=== PATIENT | female | born 1995 | race Caucasian/White ===

== ENCOUNTER 2020-01-06 10:01 | Emergency (ER) | payer BC, OTHER ==
[2020-01-06 10:34] VITALS: BP 138/74; PULSE 99; TEMP 98.8; BMI 31.7
--- NOTE | 2020-01-06 11:19 | PDOC ---
History of Present Illness - General Chief Complaint: Ear Problem Stated Complaint: LFT EAR PAIN Time Seen by Provider: 01/06/20 10:36 History Source: Patient Exam Limitations: No Limitations Past History - Travel Traveled outside of the country in the last 30 days: No Close contact w/someone who was outside of country & ill: No - Past Medical History Allergies/Adverse Reactions: Allergies Allergy/AdvReac Type Severity Reaction Status Date / Time No Known Allergies Allergy Verified 01/06/20 10:34 Home Medications: Ambulatory Orders Amox-Tr/K Cl [Augmentin - 875Mg Tablet] 1 tab PO BID #14 tablet 01/06/20 Fluticasone Prop 0.05% Nasal [Flonase -] 1 - 2 spray NS DAILY #1 spray.pump 01/22 Meclizine HCl [Antivert -] 25 mg PO TID #21 tablet 01/06/20 Asthma: Yes COPD: No - Immunization History Immunization Up to Date: Yes - Psycho Social/Smoking Cessation Hx Smoking History: Never smoked Have you smoked in the past 12 months: No Hx Alcohol Use: No Drug/Substance Use Hx: No Review of Systems - Review of Systems Able to Perform ROS?: Yes Comments:: 01/06/20 19:17 CONSTITUTIONAL: Absent: fever, chills, diaphoresis, generalized weakness, malaise, loss of appetite HEENT: Present: L ear pain Absent: rhinorrhea, nasal congestion, throat pain, throat swelling, difficulty swallowing, mouth swelling, ear pain, visual Changes RESPIRATORY: Absent: cough, shortness of breath, dyspnea with exertion, orthopnea, wheezing, stridor, hemoptysis MUSCULOSKELETAL: Absent: myalgia, arthralgia, joint swelling SKIN: Absent: rash, itching, pallor NEUROLOGIC: Absent: headache, focal weakness or paresthesias, dizziness, unsteady gait, seizure, mental status changes, bladder or bowel incontinence PSYCHIATRIC: Absent: anxiety, depression, suicidal or homicidal ideation, hallucinations. Is the patient limited Lao proficient: No *Physical Exam - Vital Signs Last Vital Signs Temp Pulse Resp BP Pulse Ox 98.8 F 99 H 16 138/74 98 01/06/20 10:32 01/06/20 10:32 01/06/20 10:32 01/06/20 10:32 01/06/20 10:32 - Physical Exam 01/06/20 19:18 GENERAL: The patient is awake, alert, and fully oriented, in no acute distress. HEAD: Normal with no signs of trauma. EYES: Pupils equal, round and reactive to light, extraocular movements intact, sclera anicteric, conjunctiva clear. HEENT: No nasal congestion or rhinorrhea. No sinus Tenderness. Mucous membranes are moist. No tonsillar erythema, exudate or edema. Uvula is midline. No R TM bulging, dullness or erythema. Left TM is retracted with a fluid level noted. Ear canals are without edema bilaterally. EXTREMITIES: Normal range of motion, no edema. NEUROLOGICAL: Normal speech, normal gait. PSYCH: Normal mood, normal affect. SKIN: Warm, Dry, normal turgor, no rashes or lesions noted. Medical Decision Making - Medical Decision Making 01/06/20 19:30 The patient is a 24-year-old female no past medical history presents the ER with 2 weeks of left ear pain. She states that she went to an urgent care last week and was told Motrin. She states that her pain is gotten worse and the pain is sharp. She admits to some dizziness. Denies lightheadedness, nausea and vomiting. A/P: Otitis media On exam the left TM is retracted with air-fluid level behind the TM. Likely an acute otitis media symptoms have progressed over the last week. We will treat with Augmentin at this time. Meclizine given for dizziness Discharge home with primary care follow-up. I discussed the physical exam findings, ancillary test results and final diagnoses with the patient. I answered all of the patient's questions. The patient was satisfied with the care received and felt comfortable with the discharge plan and treatment plan. The Patient agrees to follow up with the primary care physician/specialist within 24-72 hours. Return precautions were given. Discharge - Discharge Information Problems reviewed: Yes Clinical Impression/Diagnosis: Ear pain, left Condition: Stable Disposition: HOME - Admission No - Additional Discharge Information Prescriptions: Amox-Tr/K Cl [Augmentin - 875Mg Tablet] 1 tab PO BID #14 tablet Fluticasone Prop 0.05% Nasal [Flonase -] 1 - 2 spray NS DAILY #1 spray.pump Meclizine HCl [Antivert -] 25 mg PO TID #21 tablet - Follow up/Referral - Patient Discharge Instructions Patient Printed Discharge Instructions: DI for Otitis Media (Middle Ear Infection)-Child Additional Instructions: You have an ear infection Please take the antibiotics as prescribed. Take the entire dose even if you feel better. You may take Tylenol or Motrin as needed for pain. Follow the manufacture's instructions. Do not put anything in the ear. Keep the ear clean and dry Follow up with your primary care doctor within the week. Return to the ED if you have worsening pain, fevers, chills, or have any changes in your symptoms. - Post Discharge Activity Work/Back to School Note: Back to Work
== END 2020-01-06 11:22 | disposition home or self-care (01) ==
LOC: JERFT 10:01
DX: H66.92 Otitis media, unspecified, left ear (principal)
CPT/HCPCS: 99283-25

== ENCOUNTER 2020-06-08 10:25 | Emergency (ER) | payer OTHER ==
[2020-06-08 10:32] VITALS: BMI 30.5
[2020-06-08] MEDS ORDERED: SODIUM CHLORIDE 1,000 ML IV STA (11:37)
--- NOTE | 2020-06-08 12:13 | PDOC ---
History of Present Illness - General Chief Complaint: Vaginal Bleeding Stated Complaint: VAGINAL BLEEDING/ HEADACHE Time Seen by Provider: 06/08/20 10:43 History Source: Patient Exam Limitations: No Limitations - History of Present Illness Initial Comments: 06/08/20 12:06 HISTORY OF PRESENT ILLNESS: 24-year-old woman presents emergency department for evaluation of multiple complaints including-prolonged menstrual periods with clots, "inflammation throughout my body", numbness to the left side of her face for 3 months, hair loss, intermittent headaches, nasal congestion, generalized weakness, fatigue and shortness of breath. Patient reports she is seen and evaluated by her primary doctor on multiple occasions and has had a thorough work-up including testing for autoimmune disorders. Patient is scheduled for an MRI of her brain in 2 days. Patient is concerned that not enough is being done for her as she has a infant at home that she must take care of. No recent travel or sick contacts. PAST MEDICAL HISTORY: Denies past medical history SURGICAL HISTORY: Denies ALLERGIES: Roryrin REVIEW OF SYSTEMS General/Constitutional: See HPI HEENT: See HPI Cardiovascular: Denies chest pain or shortness of breath. Respiratory: See HPI Gastrointestinal: Denies nausea, vomiting, diarrhea or constipation. Denies rectal bleeding. Genitourinary: See HPI Musculoskeletal: See HPI Skin and breasts: Denies rash or easy bruising. Neurologic: See HPI Psychiatric: Denies depression or anxiety. Endocrine: Denies increased thirst. Denies abnormal weight change. Hematologic/Lymphatic: Denies anemia, easy bleeding, or history of blood clots. Allergic/Immunologic: Denies hives or skin allergy. Denies latex allergy. PHYSICAL EXAM General Appearance: Well-appearing, appropriately dressed. No apparent distress, no intoxication. HEENT: EOMI, PERRLA, normal ENT inspection, normal voice, TMs normal, pharynx normal. No conjunctival pallor. No photophobia, scleral icterus. Neck: Supple. Trachea midline. No tenderness, rigidity, carotid bruit, stridor, lymphadenopathy, or thyromegaly. Respiratory/Chest: Lungs CTAB. No shortness of breath, chest tenderness, respiratory distress, accessory muscle use. No crackles, rales, rhonchi, stridor, wheezing, dullness Cardiovascular: RRR. S1, S2. No JVD, murmur, bradycardia, tachycardia. Vascular Pulses: Dorsalis-Pedis (R): 2+, Dorsalis-Pedis (L): 2+ Gastrointestinal/Abdominal: Normal bowel sounds. Abdomen soft, non-distended. No tenderness or rebound tenderness. No organomegaly, pulsatile mass, guarding, hernia, hepatomegaly, splenomegaly. Lymphatic: No adenopathy, tenderness. Musculoskeletal/Extremities: Normal inspection. FROM of all extremities, normal capillary refill. Pelvis Stable. No CVA tenderness. No tenderness to extremities, pedal edema, swelling, erythema or deformity. Integumentary: Appropriate color, dry, warm. No cyanosis, erythema, jaundice or rash Neurologic: administrator of home health II-XII intact. Fully oriented, alert. Appropriate mood/affect. Motor strength 5/5. No appreciable EOM palsy, facial droop or sensory deficit. Past History - Medical History Allergies/Adverse Reactions: Allergies Allergy/AdvReac Type Severity Reaction Status Date / Time ibuprofen [From Motrin] Allergy Swelling Verified 06/08/20 10:29 Home Medications: Ambulatory Orders Albuterol Sulfate Inhaler - [Ventolin HFA Inhaler -] 1 - 2 inh PO Q6H PRN #1 inhaler 04/29/20 Multivitamin,Ther and Minerals [Vitamin and Minerals] 1 each PO DAILY #30 tablet 04/29/20 Anemia: Yes (childhood) Asthma: Yes Cancer: No Cardiac Disorders: No COPD: No Diabetes: No HTN: No Hypercholesterolemia: No Liver Disease: No Seizures: Yes (childhood, emotional seizures; 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 Audit-10AR): Negative In the last yr the pt used illegal drug/Rx for NonMed reason: No Score: Yes response is considered Positive: 0 Screen Result (Positive result requires Nsg. DAST-10): Negative *Physical Exam - Vital Signs Last Vital Signs Temp Pulse Resp BP Pulse Ox 98.2 F 88 20 162/76 99 06/08/20 10:29 06/08/20 10:29 06/08/20 10:29 06/08/20 10:29 06/08/20 10:29 ED Treatment Course - LABORATORY CBC & Chemistry Diagram: 06/08/20 11:50 06/08/20 11:50 - RADIOLOGY Radiology Studies Ordered: Category Date Time Status TRANSVAGINAL ULTRASOUND US [US] Stat Ultrasound 06/08/20 11:37 Ordered Medical Decision Making - Medical Decision Making 06/08/20 12:11 A/P: 24-year-old woman with multiple medical complaints Physical exam is unremarkable CBC, CMP, coagulation profile, TAN, Lyme, Babesia, Ehrlichia, CRP, ESR Transvaginal ultrasound Urinalysis, urine , urine culture Normal saline 1 L IV bolus As patient has already had a thorough work-up with her primary doctor he was e xplained to the patient that there is a low likelihood that a definitive diagnosis will be found in the emergency department. Patient is aware that additional testing has been performed that she can follow-up with her primary doctor for continued evaluation. Reassess 06/08/20 15:03 Transvaginal ultrasound is read by Dr. Ness: Essentially normal pelvic sonogram. We will discharge patient home to follow-up with patient's primary doctor for continued evaluation of her symptoms. I discussed the physical exam findings, ancillary test results and final diagnoses with the patient. I answered all of the patient's questions. The patient was satisfied with the care received and felt comfortable with the discharge plan and treatment plan. The patient will call their primary care physician within 24 hours to arrange follow-up and will return to the Emergency Department with any new, persistent or worsening symptoms. Portions of this note have been documented using voice recognition software. As a result, errors may occur in the steersman process. Effort has been made to correct all grammatical and steersman error, but some may have been missed which may produce sporadic inaccurate steersman or nonsensical phrases. Discharge - Discharge Information Problems reviewed: Yes Clinical Impression/Diagnosis: Abnormal uterine bleeding (AUB) Condition: Fair Disposition: HOME - Admission No - Follow up/Referral Referrals: Ksenia Munoz PROGRESS WORKER [Primary Care Provider] - - Patient Discharge Instructions Additional Instructions: Your laboratory and ultrasound testing today showed no acute abnormalities that need further work-up in the hospital. There is other testing that was performed that you can follow-up with your primary doctor. It is important that you follow-up with your primary doctor as your emergency department visit is incomplete until you do so. Make sure to follow-up for your MRI as previously scheduled. Return to the emergency department any new or worsening symptoms. Thank you very much for choosing us to provide your emergent healthcare needs - Post Discharge Activity
[2020-06-08 12:32] LABS: BASO % 0.3 % (0-2.0); EOS % 0.3 % (0-4.5); HEMATOCRIT 42.9 % (32.4-45.2); HEMOGLOBIN 14.2 GM/dL (10.7-15.3); MCH 32.3 pg (25.7-33.7); MCHC 33.2 g/dl (32.0-36.0); MEAN CELL VOLUME 97.3 fl (80-96); MEAN PLT VOLUME 9.3 fl (7.5-11.1); MONO % 5.9 % (3.8-10.2); NEUT % 83.5 % (42.8-82.8); PLATELET COUNT 290 K/MM3 (134-434); RBC 4.41 M/mm3 (3.60-5.2); RDW 12.6 % (11.6-15.6); WHITE BLOOD COUNT 11.9 K/mm3 (4.0-10.0)
[2020-06-08 12:39] LABS: INR 0.92 (0.83-1.09); PROTHROMBIN TIME (PATIENT) 10.8 SEC (9.7-13.0)
[2020-06-08 12:52] LABS: HCG,QUALITATIVE URINE Negative
[2020-06-08 12:54] LABS: ALBUMIN 4.4 g/dl (3.4-5.0); BILIRUBIN,TOTAL 0.7 mg/dL (0.2-1); BLOOD UREA NITROGEN 10.6 mg/dL (7-18); CALCIUM 9.7 mg/dL (8.5-10.1); CREATININE 0.7 mg/dL (0.55-1.3); TOT PROT 7.8 g/dl (6.4-8.2)
[2020-06-08 12:55] LABS: EPI CELLS 18 /uL (0-25.1); HYALINE CASTS 0 /uL (0-3.1); URINE APPEARANCE CLEAR; URINE BACTERIA 1538 /uL (0-1359); URINE BILIRUBIN NEGATIVE (NEGATIVE); URINE COLOR YELLOW; URINE GLUCOSE (UA) NEGATIVE (NEGATIVE); URINE KETONE NEGATIVE (NEGATIVE); URINE LEUK ESTERASE NEGATIVE (NEGATIVE); URINE NITRITE NEGATIVE (NEGATIVE); URINE PROTEIN NEGATIVE (NEGATIVE); URINE RBC 7 /uL (0-23.9); URINE UROBILINOGEN 0.2 mg/dL (0.2-1.0); URINE WBC 8 /uL (0-25.8)
[2020-06-08 15:34] VITALS: BP 134/65; PULSE 83; TEMP 99.3
[2020-06-10 15:07] LABS: E.chaff HME IgG Negative (Neg:<1:64)
[2020-06-10 17:07] LABS: BABESIA MICROTI ANTIBODY IGG <1:10 (Neg:<1:10); BABESIA MICROTI ANTIBODY IGM <1:10 (Neg:<1:10)
== END 2020-06-08 15:25 | disposition home or self-care (01) ==
LOC: JER 10:25
PROC: 3E0337Z Introduction of Electrolytic and Water Balance Substance into Peripheral Vein, Percutaneous Approach (ICD-10-PCS; principal; 2020-06-08)
DX: N93.9 Abnormal uterine and vaginal bleeding, unspecified (principal)
CPT/HCPCS: 36415; 76830-TC; 80053; 81003; 84703; 85025; 85610; 85651; 86038; 86140; 86618; 86666; 86753; 87086; 99284-25